=== PATIENT | male | born 1970 | race Caucasian/White ===

== ENCOUNTER 2018-10-11 07:25 | Emergency (ER) | payer OTHER ==
[~2018-10-11] VITALS: Ht 172.7 cm; Wt 69.1 kg
[2018-10-11 07:34] VITALS: Ht 172.7 cm; Wt 69.1 kg
[2018-10-11 08:37] VITALS: BP 119/73
== END 2018-10-11 08:37 | disposition home or self-care (01) ==
LOC: ED 07:25
DX: N30.00 Acute cystitis without hematuria (principal)
CPT/HCPCS: J0696

== ENCOUNTER 2018-10-11 22:32 | Inpatient (IN) | payer OTHER, MEDICAID ==
[~2018-10-11] VITALS: Ht 167.6 cm; Wt 69.1 kg
[2018-10-11 22:57] VITALS: Ht 167.6 cm; Wt 69.1 kg
--- NOTE | 2018-10-11 23:33 | NUR ---
PT BIB FOR C/OF TROUBLE URINATING WELL CONSTIPATION. PT STATES THAT HE WAS SEEN HERE THIS MORNING FOR PAINFUL URINATION AND INGUINAL PAIN BL. PT STATES THAT AFTER HE RECEIVED THE MEDICATION TODAY HE HAS BEEN HAVING TROUBLE PEEING LIKE HE FEELS LIKE ITS NOT ALL COMING OUT AND IT GARNICA WHEN IT DOES. PT STATES "I AM WORRIED ITS THE PROSTATE". PT ALSO STATES THAT SINCE THIS MORNING HE HAS BEEN FEELING CONSTIPATED AND WHEN HE POOPED LAST EARLIER TODAY IT WAS SMALL LITTLE GERSON. PT COMPLAINING OF BL LQ PAIN. ABDOMEN IS SOFT AND FLAT. BOWEL SOUNDS PRESENT IN ALL 4 QUADRANTS. NAD AT THIS TIME. AWAITING MSE
--- NOTE | 2018-10-12 00:32 | NUR ---
BRUNO CATHETER INSERTED, PATIENT APPEARS TO HAVE TOLERATED WELL. PERFORMED WITH STRICT STERILE TECHNIQUE.
[2018-10-12 00:48] LABS: PLATELET COUNT 241 x10^3mcL (130-400); RED CELL DISTRIBUTION WIDTH 13.8 % (11.5-14.5)
--- NOTE | 2018-10-12 00:59 | NUR ---
MEDICATED ORDERED SEE EMAR.
[2018-10-12 01:01] LABS: BAND NEUTROPHIL 5 % (0-10); MONOCYTE 2 % (0-7); SEGMENTED NEUTROPHILS 82 % (37-75)
[2018-10-12 01:02] LABS: rbc morphology (normal/abnorm) NORMAL (NORMAL)
[2018-10-12 01:03] LABS: PLATELET MORPHOLOGY PLATELETS NORMAL
[2018-10-12 01:10] LABS: CALCIUM 9.2 mg/dL (8.5-10.1); CARBON DIOXIDE 25.9 mmol/L (21-32); CHLORIDE SERUM 104 mmol/L (98-107); CREATININE SERUM 0.9 mg/dL (0.7-1.3); GFR1 > 60 mL/min; GLUCOSE SERUM 136 mg/dL (74-106); POTASSIUM SERUM 3.5 mmol/L (3.5-5.1); SODIUM SERUM 142 mmol/L (136-145)
[2018-10-12 01:27] LABS: ALBUMIN 3.5 g/dL (3.4-5.0); ALKALINE PHOSPHATASE 79 U/L (46-116); ALT/SGPT 37 U/L (16-63); AST/SGOT 20 U/L (15-37); TOTAL PROTEIN, SERUM 7.4 g/dL (6.4-8.2)
--- NOTE | 2018-10-12 02:12 | NUR ---
CALLED REPORT TO ULICES MORALES TO ASSUME CARE OF PT.
[2018-10-12 02:27] LABS: microscopic required? YES; urine erythrocyte 3+ (NEGATIVE)
[2018-10-12 02:41] LABS: MAGNESIUM 1.9 mg/dL (1.8-2.4); PHOSPHOROUS 2.4 mg/dL (2.5-4.9)
[2018-10-12 02:55] LABS: AMPHETAMINE QUAL UR NONE DETECTED (See below)
--- NOTE | 2018-10-12 03:05 | NUR ---
RECEIVED PT FROM ED VIA GUERNEY, ABLE TO AMBULATE TO BED WITH STRONG AND STEADY GAIT. PT ADMITTED WITH C/O DYSURIA, BURING UPON URINATION, AND DECREASED URINE OUTPUT. BRUNO CATH INSERTED IN ED, DRAINING VON URINE TO GRAVITY. PT C/O 11/21 TO [facility] AND REQUESTED PAIN MED, WILL MEDICATE PRN. ABD SOFT AND FLAT WITH ACTIVE BOWEL SOUNDS, NON TENDER, DENIES N/V/D, C/O CONSTIPATION, LAST BM YESTERDAY 10/11/18 SMALL FORMED. AA/OX4, ABLE TO MAKE NEEDS KNOWN, SPEECH CLEAR AND APPROPRIATE. MED-SURG, NO TELE, DENIES CP OR PRESSURE. PULSES PRESENT AND EQUAL THROUGHOUT, NO EDEMA. BREATHING ON RA, EVEN AND UNLABORED, DENIES SOB OR DYSPNEA, LUNGS CTA, O2 SAT 98% AMBULATORY AND ABLE TO REPOSITION SELF IN BED. SKIN CDI. IV TO RAC IN PLACE, DRY, PATENT, INTACT, S/L AT THIS TIME, NO PAIN, REDNESS OR SWELLING NOTED WHEN FLUSHED WITH NS. COMFORT AND SAFETY MEASURES IMPLEMENTED. ORIENTED PT TO ROOM AND CALL LIGHT. ALL NEEDS ASSESSED AND ATTENDED TO. CALL LIGHT WITHIN REACH. WILL CONTINUE TO MONITOR
--- NOTE | 2018-10-12 04:31 | NUR ---
PT LAYING IN BED, BREATHING EVEN AND UNLABORED. NO ACUTE DISTRESS OBSERVED. AROUSABLE TO VERBAL STIMULI. CALL LIGHT WITHIN REACH. AT BEDSIDE. WILL CONTINUE TO MONITOR
[2018-10-12 04:40] VITALS: BP 140/88
[2018-10-12 06:06] LABS: BASOPHIL % 0.1 % (0-2); PLATELET COUNT 216 x10^3mcL (130-400); RED CELL DISTRIBUTION WIDTH 13.8 % (11.5-14.5)
[2018-10-12 06:08] VITALS: BP 112/71
--- NOTE | 2018-10-12 06:10 | NUR ---
NO SIGNIFICANT CHANGES TO REPORT. BRUNO CATH REMAINS IN PLACE, DRAINING VON URINE TO GAVITY. 1450 ML VON URINE OUTPUT NOTED. NO ACUTE DISTRESS OBSERVED AT THIS TIME. PT COMPLIED WITH NURSING CARE THROUGHOUT THE SHIFT WITH NO ACUTE EVENTS OVERNIGHT. COMFORT AND SAFETY MEASURES MAINTAINED. ALL NEEDS ASSESSED AND ATTENDED TO. CALL LIGHT WITHIN REACH. AT BEDSIDE. WILL CONTINUE TO MONITOR AND ENDORSE CARE TO DAY SHIFT NURSE
[2018-10-12 06:25] LABS: CALCIUM 8.5 mg/dL (8.5-10.1); CARBON DIOXIDE 27.3 mmol/L (21-32); CHLORIDE SERUM 107 mmol/L (98-107); CREATININE SERUM 0.8 mg/dL (0.7-1.3); GFR1 > 60 mL/min; GLUCOSE SERUM 117 mg/dL (74-106); MAGNESIUM 1.9 mg/dL (1.8-2.4); PHOSPHOROUS 2.2 mg/dL (2.5-4.9); POTASSIUM SERUM 3.8 mmol/L (3.5-5.1); SODIUM SERUM 142 mmol/L (136-145)
--- NOTE | 2018-10-12 08:00 | NUR ---
RECEIVED PATIENT A/A/OX4; NO RESP DISTRESS ON RA. DENIED CHEST PAIN. AMBULATED FREQUENTLY. DENIED PAIN. FINISHED 100% REGULAR DIET BREAKFAST. HAD BM X1 VIA BRP. BRUNO CATH IN PLACE. VON CLOER URINE NOTED. IVF OF NS 100CC/HR. IV SITE TO RAC INTACT. DENIED PAIN NOW. CONTINUE MONITOR.
--- NOTE | 2018-10-12 12:58 | NUR ---
Discount pharmacy card and list to low cost medical clinics given to patient by Minister[employer].
--- NOTE | 2018-10-12 18:30 | NUR ---
DENIED PAIN. BRUNO CATH PATENT WITH 2300 CC OF UOP. HAD BM X1 THIS SHIFT. AMBULATED IN ROOM. IVF NS 100CC/HR. IV SITE TO RAC INTACT. ENDORSED CARE TO NOC NURSE.
--- NOTE | 2018-10-12 18:55 | NUR ---
PT RECIEVED FROM THE DAY SHIFT RN. PT IS ALERT AND ORIENTED X4, CALM AND COOPERATIVE WITH CARE. FAMILY AT THE BEDSIDE. NO ACUTE DISTRESS NOTED. PT HAS BRUNO CATHETER IN PLACE, SAFETY AND COMFORT MEASURES MAINTAINED, BED IN LOWEST POSITION, CALL LIGHT WITHIN REACH.
[2018-10-12 20:46] VITALS: BP 142/71
--- NOTE | 2018-10-12 20:59 | NUR ---
PT GIVEN TYLENOL 650 MG PO FOR FEVER OF 102. WILL REASSESS TEMPERATURE.
--- NOTE | 2018-10-12 21:30 | NUR ---
PT TEMP IS STILL 102, TYLENOL INEFFECTIVE AT THIS TIME. COOLING MEASURES IN PLACE. DR JEANNE CANAS AWARE AND TORADOL 30 MG IV ORDERED. WILL GIVE MEDICATION ORDERED AND REASSESS TEMPERATURE.
--- NOTE | 2018-10-12 22:24 | NUR ---
IVP TORADOL GIVEN. WILL REASSESS TEMPERATURE IN 30 MINS.
--- NOTE | 2018-10-12 23:13 | NUR ---
PT TEMPP RECHECK WAS 100.0 WILL CONTINUE TO MONITOR.
--- NOTE | 2018-10-13 00:09 | NUR ---
PT IS RESTING IN BED WITH EYES CLOSED AT THIS TIME. NO ACUTE DISTRESS NOTED. PT HAS BEEN CALM AND COOPERATIVE WITH CARE. NO S/S OF PAIN NOTED AT THIS TIME. SAFETY AND COMFORT MEASURES MAINTAINED, BED IN LOWEST POSITION, CALL LIGHT WITHIN REACH. WILL CONTINUE TO MONITOR AT THIS TIME.
--- NOTE | 2018-10-13 01:36 | NUR ---
PT IS RESTING IN BED WITH EYES CLOSED AT THIS TIME. NO ACUTE DISTRESS NOTED. PT HAS BEEN CALM AND COOPERATIVE WITH CARE AT THIS TIME. NO S/S OF PAIN NOTED. IV INFUSING AND INTACT, BRUNO IS DRAINING FREELY. SAFETY AND COMFORT MEASURES MAINTAINED, BED IN LOWEST POSITION, CALL LIGHT WITHIN REACH.
--- NOTE | 2018-10-13 03:10 | NUR ---
PT IS RESTING IN BED WITH EYES CLOSED. NO ACUTE DISTRESS NOTED. PT HAS BEEN CALM AND COOPERATIVE WITH CARE AT THIS TIME. NO S/S OF PAIN NOTED. SAFETY AND COMFORT MEASURES MAINTAINED, BED IN LOWEST POSITION, CALL LIGHT WITHIN REACH.
--- NOTE | 2018-10-13 04:05 | NUR ---
PT IS RESTING IN BED WITH EYES CLOSED. NO ACUTE DISTRESS NOTED. PT HAS BEEN CALM AND COOPERATIVE WITH CARE. NO S/S OF PAIN NOTED. SAFETY AND COMFORT MEASURES MAINTAINED, BED IN LOWEST POSITION, CALL LIGHT WITHIN REACH.
--- NOTE | 2018-10-13 05:00 | NUR ---
PT HAS RESTED IN LONG INTERVALS THROUGHOUT THE SHIFT. PT HAS BEEN CALM AND COOPERATIVE WITH CARE, ALERT AND ORIENTED X4, BRUNO IN PLACE DRAINING VON/YELLOW URINE. NO COMPLAINT OF PAIN AT THIS TIME. SAFETY AND COMFORT MEASURES MAINTAINED, BED IN LOWEST POSITION, CALL LIGHT WITHIN REACH. WILL ENDORSE CONTINUITY OF CARE TO THE ONCOMING RN.
[2018-10-13 05:59] VITALS: BP 110/73
[2018-10-13 06:01] LABS: BASOPHIL % 0.3 % (0-2); PLATELET COUNT 213 x10^3mcL (130-400); RED CELL DISTRIBUTION WIDTH 13.8 % (11.5-14.5)
[2018-10-13 06:31] LABS: CALCIUM 8.3 mg/dL (8.5-10.1); CARBON DIOXIDE 25.6 mmol/L (21-32); CHLORIDE SERUM 111 mmol/L (98-107); CREATININE SERUM 0.8 mg/dL (0.7-1.3); GFR1 > 60 mL/min; GLUCOSE SERUM 108 mg/dL (74-106); POTASSIUM SERUM 4.2 mmol/L (3.5-5.1); SODIUM SERUM 147 mmol/L (136-145)
--- NOTE | 2018-10-13 07:20 | NUR ---
RECEIVED BEDSIDE REPORT FROM GASTROENTEROLOGY PROFESSOR NURSE. PATIENT IS STABLE NO APPARENT SIGNS OF PAIN, SOB, OR RESPIRATORY DISTRESS. PATIENT ON ROOM AIR. RESTING COMFORTABLY IN BED. IV TO RIGHT AC IS INFUSING WELL. NO EDEMA OR ERYTHEMA NOTED AT SITE. CALL LIGHT WITHIN REACH, BED IN LOW POSITION, QUESTIONS AND CONCERNS ADDRSSED. SAFETY PRECAUTION IN PLACE. PATIENT DENIES OTHER NEEDS AT THIS TIME.
--- NOTE | 2018-10-13 08:47 | NUR ---
ADMINISTERED MORNING MEDICATION. PATIENT TOLORATED WELL. PATIENT DEUCATED ON NEED FOR MEDICATION, AND ADVERSE EFFECTS TO REPORT. PATIENT VERBALIZED UNDERSTANDING. QUESTIONS AAND CONCERNS ADDRESSED. SAFETY PRECAUTIONS IN PLACE. PATIENT DENIES OTHER NEEDS AT THIS TIME.
[2018-10-13 09:51] VITALS: BP 123/84
--- NOTE | 2018-10-13 10:49 | NUR ---
PATIENT IS STABLE NO APPARENT SIGNS OF PAIN, SOB, OR RESPIRATORY DISTRESS. PATIENT IS RESTING COMFORTABLY INBED. ON ROOM AIR. IV INFUSING WELL. BRUNO CATH IN PLACE DRAINING DARK YELLOW URINE. PATIENT DENIES OTHER NEEDS AT THIS TIME. QUESTIONS AND CONCERNS ADDRESSED. SAFETY PRECAUTIONS IN PLACE.
--- NOTE | 2018-10-13 10:57 | NUR ---
ADMINISTERED MORNING MEDICATION. PATIENT TOLORATED WELL. PATIENT EDUCATED ON NEED FOR MEDICATION, AND ADVERSE EFFECTS TO REPORT. PATIENT VERBALIZED UNDERSTANDING. QUESTIONS AAND CONCERNS ADDRESSED. SAFETY PRECAUTIONS IN PLACE. PATIENT DENIES OTHER NEEDS AT THIS TIME.
--- NOTE | 2018-10-13 16:43 | NUR ---
PATIENT IS STABLE, NO APPARENT SIGNS OF PAIN, SOB, OR RESPIRATORY DISTRESS. PATIENT IS RESTING COMFORTABLY IN BEDSIDE CHAIR. FAMILY AT BEDSIDE. IV TO RAC IS INFUSING WELL. NO EDEMA OR ERYTHEMA TO SITE. PATIENT DENIES OTHER NEEDS AT THIS TIME. BRUNO CATH IN PLACE. SAFETY PRECAUTIONS IN PLACE.
[2018-10-13 18:14] VITALS: BP 147/82
--- NOTE | 2018-10-13 19:34 | NUR ---
RECEIVED PATIENT IN BED AWAKE, ALERT AND ORIENTED WITH NO C/O ABDOMINAL DISCOMFORT AT THIS TIME. BREATHING EASY AND NONLABOR SATTING AT 99% RA. ABDOMEN ROUND AND NON TENDER WITH ACTIVE BS. IV TO RAC INTACT AND INFUSING WELL WITH NO REDNESS AND NO SWELLING TO SITE. WILL CONTINUE TO MONITOR. CALL LIGHT WITHIN REACH.
[2018-10-13 21:32] VITALS: BP 142/92
--- NOTE | 2018-10-13 23:38 | NUR ---
SLEEPING THIS TIME AFTER PATIENT HAD SHOWER. DENIES PAIN AND DISCOMFORT.
--- NOTE | 2018-10-14 05:20 | NUR ---
SLEPT AT LONG INTERVALS. NO SIGNIFICANT CHANGES IN CONDITION NOTED.
[2018-10-14 05:53] VITALS: BP 131/85
[2018-10-14 06:25] LABS: BASOPHIL % 0.5 % (0-2); PLATELET COUNT 240 x10^3mcL (130-400); RED CELL DISTRIBUTION WIDTH 13.6 % (11.5-14.5)
[2018-10-14 06:45] LABS: CARBON DIOXIDE 25.1 mmol/L (21-32); CHLORIDE SERUM 108 mmol/L (98-107); CREATININE SERUM 0.7 mg/dL (0.7-1.3); GFR1 > 60 mL/min; GLUCOSE SERUM 111 mg/dL (74-106); MAGNESIUM 1.7 mg/dL (1.8-2.4); PHOSPHOROUS 3.9 mg/dL (2.5-4.9); POTASSIUM SERUM 3.6 mmol/L (3.5-5.1); SODIUM SERUM 145 mmol/L (136-145)
--- NOTE | 2018-10-14 07:25 | NUR ---
ALERT AND ORIENTED. BREATHING FREELY ON RA. C/O H/A 09/21 SAYS HE DID NOT SLEEP WELL LAST NIGHT. ADMIN TYLENOL 650 MG PO. NS INFUSING 100 CC HOUR. BRUNO DRAINING YELLOW URINE. INDEPENDENT W ADL'S. BRP. VSS. CALL LIGHT WITHIN REACH.
[2018-10-14 08:36] VITALS: BP 127/88
[2018-10-14] MEDS ORDERED: FLO4 PO (11:30)
[2018-10-14 13:34] VITALS: BP 127/88
--- NOTE | 2018-10-14 15:22 | NUR ---
PT GETTING READY TO GO HOME. IV DC'D NO TELE. CHANGED BRUNO BAG TO LEG BAG PER PTS PREFERENCE. CD AND [facility] REFERRAL MATERIAL GIVEN TOPT. ALL DC INSTRUCTIONS REVIEWED WITH AND SIGNED BY PT. F/U OLIVERIO GIVEN FOR DR. SONG. PRESSCRIPTIONS GIVEN FOR [employer].
== END 2018-10-14 15:40 | disposition home or self-care (01) | DRG 501 ==
LOC: ED 22:32 → MU 10-12 01:42
PROVIDERS: Emergency Medicine; Internal Medicine; ADMIT Internal Medicine
DX: N40.1 Benign prostatic hyperplasia with lower urinary tract symptoms (principal); N17.0 Acute kidney failure with tubular necrosis; E83.39 Other disorders of phosphorus metabolism; R33.8 Other retention of urine; N30.90 Cystitis, unspecified without hematuria; I10 Essential (primary) hypertension; R80.9 Proteinuria, unspecified; E78.5 Hyperlipidemia, unspecified; Z68.24 Body mass index [BMI] 24.0-24.9, adult
CPT/HCPCS: G0378; J0696; J1885; J1956; J7030; Q0092

== ENCOUNTER 2018-10-22 09:51 | Inpatient (IN) | payer OTHER, MEDICAID ==
[~2018-10-22] VITALS: Ht 167.6 cm; Wt 66.2 kg
[~2018-10-22 09:51] MED LIST: FLO4 PO
--- NOTE | 2018-10-22 10:19 | NUR ---
PT BROUGHT IN TO ED BY SELF WITH C/O BILATERAL FLANK PAIN SINCE YESTERDAY. AT BEDSIDE PT IS AAOX4, RESPS E/U, SKIN IS PINK, WARN AND DRY. PERRLA. ALSO, PT IS CALM AND COOPERATIVE. PT AMBULATED FROM LOBBY TO ROOM WITH STEADY GAIT AND NO ASSIST. PT PLACED ON MONITOR. PT ORIENTED TO ROOM, USE OF CALL CUEVAS AND BED IN LOWEST POSITION. BED RAIL IS UP X1 FOR SAFETY.
--- NOTE | 2018-10-22 11:24 | NUR ---
PT RESTING IN POSITION OF COMFORT. NO ACUTE DISTRESS NOTED AT THIS MOMENT. WILL CONTINUE TO MONITOR.
[2018-10-22 11:40] LABS: CALCIUM 9.3 mg/dL (8.5-10.1); CARBON DIOXIDE 32.2 mmol/L (21-32); CHLORIDE SERUM 103 mmol/L (98-107); CREATININE SERUM 0.8 mg/dL (0.7-1.3); GFR1 > 60 mL/min; GLUCOSE SERUM 108 mg/dL (74-106); POTASSIUM SERUM 4.7 mmol/L (3.5-5.1); SODIUM SERUM 142 mmol/L (136-145)
[2018-10-22 11:44] LABS: ALBUMIN 3.6 g/dL (3.4-5.0); ALKALINE PHOSPHATASE 99 U/L (46-116); ALT/SGPT 56 U/L (16-63); AST/SGOT 18 U/L (15-37); BILIRUBIN TOTAL 0.8 mg/dL (0.20-1.00); LIPASE 96 IU/L (73-393)
[2018-10-22 11:46] LABS: BASOPHIL % 0.3 % (0-2); PLATELET COUNT 395 x10^3mcL (130-400); RED CELL DISTRIBUTION WIDTH 13.2 % (11.5-14.5)
[2018-10-22 11:56] LABS: microscopic required? YES; urine erythrocyte 3+ (NEGATIVE)
--- NOTE | 2018-10-22 13:59 | NUR ---
HAND-OFF REPORT TO ANDREW BENTON.
--- NOTE | 2018-10-22 14:10 | NUR ---
RECEIVED PT FROM ER NURSE A/OX4. NO ACUTE DISTRESS NOTED. DENIES FLANK PAIN. TEMP 99.9 BP 128/87 HR 66 RR 17. RESP EVEN AND UNLABORED ON RA. NO TELE. BRUNO CATH IN PLACE DRAINING VON COLORED URINE. IV INTACT PATENT TO RAC. BED IN LOW POSITION. CALL LIGHT WITHIN REACH. WILL CONTINUE TO MONITIOR.
[2018-10-22 14:26] LABS: PHOSPHOROUS 3.1 mg/dL (2.5-4.9)
[2018-10-22 14:27] VITALS: BP 128/87
[2018-10-22 14:29] LABS: CHOLESTEROL/HDL RATIO 5.1
--- NOTE | 2018-10-22 16:04 | NUR ---
PT SITTING UP IN BED TALKING WITH FAMILY MEMBER. NO C/O OF FLANK PAIN. CALL LIGHT WTIHIN REACH. WILL CONTINUE TO MONITOR.
--- NOTE | 2018-10-22 18:18 | NUR ---
PT A/OX4 SITTING UP IN BED. NO ACUTE DISTRESS NOTED. IV INTACT AND PATENT. BRUNO CATH IN PLACE DRAINING VON COLORED URINE. FAMILY MEMBERS AT BEDSIDE. CALL LIGHT WITHIN REACH. WILL BE ENDORSED.
--- NOTE | 2018-10-22 20:01 | NUR ---
RECEIVED IN BED AWAKE ALERT VERBAL DENIES PAIN, NO DISTRESS DIM LUNGS SOUND AT THE BASES, CONTINUOUS 02 @ 2L/MIN NC SATURATING 94% IV ACCESS @ LT WRIST PATENT NON INFIL, SCD'S OFF AT THIS TIME PER REQUEST, RESIDENT HAS BM X1 SMALL AMT STILL FEELING BLOATED AND TRYING TO HAVE BM, REFUSED DULCOLAX OFFER PRN FOR BOWEL MANAGEMENT, SHE WILL ASK LATER IF SHE NEEDS IT, SHIFT ASSESSMENT DONE, ATTENDED NEEDS CALL LIGHT AT REACH, CONT TO MONITOR.
--- NOTE | 2018-10-22 20:13 | NUR ---
AAO X4 VERBAL UKRAINIAN SPEAKING, NOT IN ANY DISTRESS, LUNGS CTA, F/C INPLACED NO HEMATURIA, DENIES URINARY DISCOMFORTS, IVF INFUSING NS @ 100CC/HR IV ACCESS RAC PATENT NON INFIL, SHIFT ASSESSMENT DONE, CONT ON ATB IV ROCEPHIN FOR UTI NO ADV REACTION, V/S STABLE, FAMILY AT BEDSIDE FOR VISIT, CONT TO MONITOR.
[2018-10-22 20:49] VITALS: BP 111/74
--- NOTE | 2018-10-23 01:03 | NUR ---
PT STILL AWAKE A LITTLE ANXIOUS CLAIMED CANNOT SLEEP, DR MACIAS MADE AWARE, ALSO INFORMED PT'S HOME MEDS FLOMAX NOT ORDERED FOR THIS ADMISSION, MD WITH ORDERS MADE, ATIVAN PO GIVEN FOR ANXIETY, WILL CONT TO MONITOR.
--- NOTE | 2018-10-23 05:46 | NUR ---
NO SIGNIFICANT CHANGES SLEPT WELL AFTER TAKING ATIVAN PO FOR ANXIETY, F/C DRAINING FREELY NO HEMATURIA, DENIES URINARY DISCOMFORTS, NEEDS MET, WILL MONITOR.
[2018-10-23 06:01] VITALS: BP 109/69
[2018-10-23 06:17] LABS: BASOPHIL % 0.4 % (0-2); PLATELET COUNT 315 x10^3mcL (130-400); RED CELL DISTRIBUTION WIDTH 13.3 % (11.5-14.5)
[2018-10-23 06:36] LABS: CALCIUM 9.1 mg/dL (8.5-10.1); CARBON DIOXIDE 26.1 mmol/L (21-32); CHLORIDE SERUM 108 mmol/L (98-107); CREATININE SERUM 0.8 mg/dL (0.7-1.3); GFR1 > 60 mL/min; GLUCOSE SERUM 106 mg/dL (74-106); POTASSIUM SERUM 4.3 mmol/L (3.5-5.1); SODIUM SERUM 140 mmol/L (136-145)
--- NOTE | 2018-10-23 06:46 | NUR ---
EMPTIED 1800 CC URINE OUTPUT FROM BRUNO VON COLOR, DENIES URINARY DISCOMFORTS, WILL ENDORSE TO INCOMING SHIFT FOR F/U CARE.
--- NOTE | 2018-10-23 07:15 | NUR ---
RECEIVED PT FROM NIGHT NURSE. PT IS LAYING DOWN IN BED WITH HOB UP. PT LOOKS TO BE IN NO ACUTE DISTRESS AT THIS TIME AND DENIES ANY PAIN. RESPIRATIONS EVEN AND UNLABORED ON ROOM AIR. IV SITE PATENT WITH NO SIGNS OF ERYTHEMA OR SWELLING WITH IV FLUIDS INFUSING. BRUNO PRESENT. BED IN LOWEST POSITION, CALL LIGHT WITHIN REACH. WILL CONTINUE TO MONITOR.
[2018-10-23 08:31] VITALS: BP 100/64
--- NOTE | 2018-10-23 10:25 | NUR ---
Discount pharmacy card and list to low cost medical clinics given to patient by Ondina Velasco.
[2018-10-23] MEDS ORDERED: LEVOFLOXACIN500 M1 PO (13:40)
[2018-10-23 14:11] VITALS: BP 100/64
--- NOTE | 2018-10-23 15:55 | NUR ---
PT AWAKE, ALERT AND ORIENTED AT TIME OF DISCHARGE. PT LOOKS TO BE IN NO ACUTE DISTRESS AND DENIES ANY PAIN AT TIME OF DISCHARGE. PT WALKED TO THE LOBBY ACCOMPANIED BY NURSE WITH MANSI IN HAND. PROVIDED PT WITH EDUCATION AND PRESCRIPTIONS, INFORMED PT TO COMPLETE FULL COURSE OF ANTIBIOTICS. PT VERBALIZED UNDERSTANDING OF EDCUATION. INFORMED PT OF FOLLOW UP APPOINTMENT WITH PCP, PT VERBALIZED UNDERSTANDING OF FOLLOW UP APPOINTMENT. PT DISCHARGED HOME WITH BRUNO CATHETER, PROVIDED PT WITH LEG BAG AND CHANGED TO LEG BAG FOR PATIENT. IV CATHETER REMOVED AND CATHETER FULLY INTACT. ALL QUESTIONS AND CONCERNS ADDRESSED.
[2018-10-26 10:24] VITALS: Ht 167.6 cm; Wt 66.2 kg
== END 2018-10-23 15:45 | disposition home or self-care (01) | DRG 466 ==
LOC: ED 09:51 → MU 12:20
PROVIDERS: Emergency Medicine; ADMIT Internal Medicine
DX: T83.511A Infection and inflammatory reaction due to indwelling urethral catheter, initial encounter (principal); N17.0 Acute kidney failure with tubular necrosis; N39.0 Urinary tract infection, site not specified; T83.018A Breakdown (mechanical) of other urinary catheter, initial encounter; N40.1 Benign prostatic hyperplasia with lower urinary tract symptoms; N13.8 Other obstructive and reflux uropathy; R33.8 Other retention of urine; Y92.238 Other place in hospital as the place of occurrence of the external cause; Y84.6 Urinary catheterization as the cause of abnormal reaction of the patient, or of later complication, without mention of misadventure at the time of the procedure; Z68.23 Body mass index [BMI] 23.0-23.9, adult
CPT/HCPCS: G0378; J0696; J1885; J7030; Q0092